=== PATIENT | female | born 1945 | race Caucasian/White ===

== ENCOUNTER 2018-07-04 07:12 | Day surgery (SDC) | payer MEDICARE, OTHER ==
[~2018-07-04 07:12] MED LIST: Lactated Ringers 1,000 ML IV SCH
[2018-07-04] MEDS ORDERED: Lidocaine 1% 30 ML SDV INJECT ONE (07:13)
[2018-07-04] MEDS ORDERED: Propofol 200 MG/20 ML SDV IV ONE (07:13)
[2018-07-04] MEDS ORDERED: Sodium Chloride 0.9% 10 ML Syringe FLUSH PRN (07:15)
[2018-07-04] MEDS ORDERED: Lactated Ringers 1,000 ML IV SCH (07:15)
--- NOTE | 2018-07-04 08:45 | PREOP ---
ADMISSION DATE: 07/04/2018 CHIEF COMPLAINT: Colon cancer screening. HISTORY OF PRESENT ILLNESS: A 73-year-old white female, presents for followup C- scope. She is without complaints. Last scope was 10 years ago and was negative. She has a negative family history. SOCIAL HISTORY: The patient is , with 2 children. 16 years of education. She works as a housewife. Does not smoke. Does not use any alcohol. PAST MEDICAL HISTORY: Significant for cataracts, obesity, hypothyroidism, as well as Mejia palsy, and carpal tunnel syndrome. PAST SURGICAL HISTORY: Significant for arthroscopy, cholecystectomy, and eye surgery. MEDICATIONS: 1. Levothyroxine 75 mcg one per day. 2. Voltaren 75 mg twice a day as needed. 3. Baby aspirin once daily. 4. Vitamin C 500 mg daily. 5. Calcium carbonate and vitamin D daily. 6. Multivitamin one daily. 7. Glucosamine chondroitin 1 tablet daily. ALLERGIES: She has no known drug allergies. FAMILY HISTORY: Significant for heart disease and diabetes, as well as Parkinson's. REVIEW OF SYSTEMS: Negative for constitutional, HEENT, respiratory, cardiovascular, gastrointestinal, genitourinary, musculoskeletal, as well as neurologic. PHYSICAL EXAMINATION: VITAL SIGNS: Reviewed. She is stable, afebrile. HEENT: Grossly within normal limits. LUNGS: Clear to auscultation. HEART: Had a regular rate and rhythm. ABDOMEN: Soft, nontender. ASSESSMENT: Colon cancer screening. PLAN: C-scope. Procedure and risks explained to the patient to include bleeding, perforation, and infection. The patient expresses understanding and asked us to proceed. /[id number] /MODL
--- NOTE | 2018-07-04 08:45 | PCM.OPNOTE ---
- General Post-Op/Procedure Note Date of Surgery/Procedure: 07/04/18 Operative Procedure(s): c scope Findings: diverticulosis Anesthesia Technique: MAC Primary Surgeon: Stephen Coe Anesthesia Provider: Victor Manuel Kimble Pathology: none Complications: None Condition: Good Free Text/Narrative:: see dictation
[2018-07-04 09:12] VITALS: BP 150/80
--- NOTE | 2018-07-04 09:47 | OR ---
DATE OF OPERATION: 07/04/2018 SURGEON: Stephen Coe MD PROCEDURE PERFORMED: Colonoscopy. PREOPERATIVE DIAGNOSIS: Need for screening for colon cancer. POSTOPERATIVE DIAGNOSIS: Diverticulosis. INDICATIONS FOR PROCEDURE: This is a 73-year-old white female, who presents for colonoscopy. She is asymptomatic. She was offered and accepted the same. DESCRIPTION OF OPERATION: After an excellent IV sedation was administered, digital rectal exam was performed. No marked abnormality was noted. Flexible colonoscope was inserted and advanced to the cecum without difficulty. The prep was excellent. The following findings were noted. Ascending colon, scattered diverticula. Transverse colon, scattered diverticula. Descending colon, mild diverticulosis. Sigmoid, mild diverticulosis. Rectum and anus, unremarkable. Colon was deflated. The scope was removed. The patient tolerated the procedure well, was taken to recovery room in good condition. RECOMMENDATIONS: Given her age, colonoscopy on a p.r.n. basis going forward. /[id number] ERIC/MYRNA
== END 2018-07-04 09:20 | disposition home or self-care (01) ==
LOC: FB.SDS 07:12
PROVIDERS: ATTEND Surgery
DX: Z12.11 Encounter for screening for malignant neoplasm of colon (principal); K57.30 Diverticulosis of large intestine without perforation or abscess without bleeding; E03.9 Hypothyroidism, unspecified; E66.9 Obesity, unspecified; Z79.82 Long term (current) use of aspirin; Z79.899 Other long term (current) drug therapy; Z68.33 Body mass index [BMI] 33.0-33.9, adult
CPT/HCPCS: 00812-QZ; J2001; J2704; J7120

== ENCOUNTER 2020-10-30 02:17 | Emergency (ER) | payer MEDICARE, OTHER ==
[2020-10-30] MEDS: Ketorolac 30 MG/ML SDV IM STA (04:09)
[2020-10-30] MEDS: Acetaminophen 500 MG Tab PO STA (04:13)
--- NOTE | 2020-10-30 04:14 | EDM.PDOC ---
ED HPI GENERAL MEDICAL PROBLEM - General Chief Complaint: Lower Extremity Injury/Pain Stated Complaint: KNEE PAIN Time Seen by Provider: 10/30/20 02:35 Source of Information: Reports: Patient, Family History Limitations: Reports: No Limitations - History of Present Illness INITIAL COMMENTS - FREE TEXT/NARRATIVE: Patient presented to the ED because of right knee pain. She was feeling dizzy after taking oxycodone and felt on her right knee. She just hat a right knee surgery 1 day ago. - Related Data Allergies Allergy/AdvReac Type Severity Reaction Status Date / Time No Known Allergies Allergy Verified 10/30/20 03:24 Home Meds: Home Meds Ascorbate Calcium [Vitamin C] 500 mg PO DAILY 11/22/15 [History] Aspirin [Ecotrin EC] 81 mg PO DAILY 11/22/15 [History] Calcium Carb, Citrate/Vit D3 [Calcium + D3 ER Tablet] 1 ea PO DAILY 11/22/15 [History] Glucosam/Chondr/Collagn/Hyalur [Glucosamine & Chondroitin Cap] 2 ea PO DAILY 11/22/15 [History] Multivitamin with Minerals [Multiple Vitamin] 1 ea PO DAILY 11/22/15 [History] Macu-Health 1 dose PO DAILY 11/23/15 [History] Levothyroxine 75 mcg PO DAILY 06/21/18 [History] .Eliquis 1 tab PO BID 10/30/20 [History] oxyCODONE 5 - 10 mg PO Q4H PRN 10/30/20 [History] traMADol [Ultram] 100 mg PO Q8H PRN #30 tab 10/30/20 [Rx] Past Medical History HEENT History: Reports: Cataract Other HEENT History: Mejia's Palsy. Cardiovascular History: Reports: None Respiratory History: Reports: None Gastrointestinal History: Reports: Cholelithiasis Genitourinary History: Reports: None OPERATIONS TECHNICIAN History: Reports: Other OPERATIONS TECHNICIAN History: History of abnormal PAP. Musculoskeletal History: Reports: Arthritis Other Musculoskeletal History: Carpal tunnel syndrome, bilateral. Neurological History: Reports: None Other Neuro History: Mejia's Palsy. Psychiatric History: Reports: None Endocrine/Metabolic History: Reports: Hypothyroidism, Obesity/BMI 30+ Hematologic History: Reports: None Dermatologic History: Reports: None - Infectious Disease History Infectious Disease History: Reports: Chicken Pox, Measles - Past Surgical History HEENT Surgical History: Reports: Eye Surgery GI Surgical History: Reports: Cholecystectomy Musculoskeletal Surgical History: Reports: Arthroscopic Procedure Other Musculoskeletal Surgeries/Procedures:: Right knee arthoscopy, 2004. Right total knee replacement, 2020. Social & Family History - Caffeine Use Caffeine Use: Reports: Soda Review of Systems - Review of Systems Review Of Systems: See Below Constitutional: Reports: No Symptoms Eyes: Reports: No Symptoms Ears: Reports: No Symptoms Nose: Reports: No Symptoms Mouth/Throat: Reports: No Symptoms Respiratory: Reports: No Symptoms Cardiovascular: Reports: No Symptoms GI/Abdominal: Reports: No Symptoms Genitourinary: Reports: No Symptoms Musculoskeletal: Reports: Other (R knee pain) Skin: Reports: No Symptoms Neurological: Reports: No Symptoms Psychiatric: Reports: No Symptoms ED EXAM, GENERAL - Physical Exam Exam: See Below Exam Limited By: Uncooperative General Appearance: No Apparent Distress Ears: Normal External Exam, Normal Canal Nose: Normal Inspection, Normal Mucosa, No Blood Throat/Mouth: Normal Inspection, Normal Lips, Normal Teeth Head: Atraumatic, Normocephalic Neck: Normal Inspection, Supple, Non-Tender, Full Range of Motion Respiratory/Chest: No Respiratory Distress, Lungs Clear, Normal Breath Sounds, No Accessory Muscle Use, Chest Non-Tender Cardiovascular: Normal Peripheral Pulses, Regular Rate, Rhythm, No Edema, No Gallop, No JVD, No Murmur, No Rub GI/Abdominal: Normal Bowel Sounds, Soft, Non-Tender, No Organomegaly Back Exam: Normal Inspection, Full Range of Motion Extremities: Normal Inspection, Normal Range of Motion, Other (tenderness lateral aspect of the right knee) Neurological: Alert, Oriented, CN II-XII Intact Course - Vital Signs Text/Narrative:: Xray rt knee-see result Toradol 30 mg IM x1 Tramadol 100 mg PO x1 Tylenol 1000 mg PO x1 Last Recorded V/S: Last Vital Signs Temp 36.6 C 10/30/20 02:30 Pulse 80 10/30/20 02:30 Resp 16 10/30/20 02:30 BP 124/105 H 10/30/20 02:30 Pulse Ox 96 10/30/20 02:30 - Orders/Labs/Meds Orders: Active Orders 24 hr Category Date Time Status Knee 1V or 2V Rt [CR] Stat Exams 10/30/20 02:25 Taken Meds: Medications Discontinued Medications Generic Name Dose Route Start Last Admin Trade Name Freq PRN Reason Stop Dose Admin Acetaminophen 1,000 mg 10/30/20 03:56 Acetaminophen 500 Mg Tab PO 10/30/20 03:57 NOW STA Ketorolac Tromethamine 30 mg 10/30/20 03:56 10/30/20 04:09 Ketorolac 30 Mg/Ml Sdv IM 10/30/20 03:57 30 mg NOW STA Administration Tramadol HCl 100 mg 10/30/20 03:56 Tramadol 50 Mg Tab PO 10/30/20 03:57 NOW STA Departure - Departure Time of Disposition: 04:30 Disposition: Home, Self-Care 01 Condition: Good Clinical Impression: Knee injury - Discharge Information Prescriptions: traMADol [Ultram] 100 mg PO Q8H PRN #30 tab PRN Reason: Pain Instructions: Knee Sprain, Adult, [id number] Referrals: Suzi Nelson PA [Primary Care Provider] - Forms: ED Department Discharge Additional Instructions: Please read discharge instructions on knee injury Take tramadol 100 mg with tylenol 1000 mg every 8 hours as needed for mild to moderate pain. For severe pain take your oxycodone as prescribed Follow up as needed Sepsis Event Note (ED) - Evaluation Sepsis Screening Result: No Definite Risk - Focused Exam Vital Signs: Vital Signs Temp Pulse Resp BP Pulse Ox 10/30/20 02:30 36.6 C 80 16 124/105 H 96 - My Orders Last 24 Hours: My Active Orders 10/30/20 02:25 Knee 1V or 2V Rt [CR] Stat - Assessment/Plan Last 24 Hours: My Active Orders 10/30/20 02:25 Knee 1V or 2V Rt [CR] Stat
[2020-10-30] MEDS: traMADol 50 MG Tab PO STA (04:16)
[2020-10-30] MEDS: traMADol 50 MG Tab ONE (04:17)
[2020-10-30 21:36] VITALS: BP 99/55; PULSE 77
== END 2020-10-30 05:30 | disposition home or self-care (01) ==
LOC: FB.ED 02:17
DX: S89.91XA Unspecified injury of right lower leg, initial encounter (principal); E03.9 Hypothyroidism, unspecified; E66.9 Obesity, unspecified; Z79.82 Long term (current) use of aspirin; Z79.899 Other long term (current) drug therapy; Z90.49 Acquired absence of other specified parts of digestive tract; Z68.33 Body mass index [BMI] 33.0-33.9, adult; W19.XXXA Unspecified fall, initial encounter
CPT/HCPCS: 73560; 96372; 99284; A9270; J1885

== ENCOUNTER 2021-05-13 22:38 | Emergency (ER) | payer MEDICARE, OTHER ==
[2021-05-13] MEDS ORDERED: Losartan 25 MG Tab PO SCH (23:15)
[2021-05-14 00:43] VITALS: BP 156/78; PULSE 75
== END 2021-05-14 00:27 | disposition home or self-care (01) ==
LOC: FB.ED 22:38
DX: I10 Essential (primary) hypertension (principal); E78.00 Pure hypercholesterolemia, unspecified; E03.9 Hypothyroidism, unspecified; E66.9 Obesity, unspecified; Z68.32 Body mass index [BMI] 32.0-32.9, adult; Z79.82 Long term (current) use of aspirin; Z79.899 Other long term (current) drug therapy
CPT/HCPCS: 36415; 80053; 84484; 85025; 93005; 93010; 99283-25; 99284; A9270-GY